=== PATIENT | male | born 1975 | race Caucasian/White ===

== ENCOUNTER 2023-12-28 04:49 | Emergency (ER) | payer OTHER, SELFPAY ==
[2023-12-28 04:49] VITALS: BP 134/88
[2023-12-28 05:22] VITALS: BMI 45.6
--- NOTE | 2023-12-28 05:24 | EDRN ---
Pt says he has L side abdominal pain that woke him around 0300. Pain radiates into groin. Pt denies cp, sob, n/v/d/constipation, urinary symptoms, fever/chills/cough, weakness. Pt felt fine when he went to bed around 0200, took some medication
for acid reflux. Pt says the pain feels 'like someone punched me.'
--- NOTE | 2023-12-28 05:33 | ED.GENMED ---
History of Present Illness
General
Chief Complaint: Abdominal Pain
Source: patient and family
Time Seen by Provider: 12/28/23 05:21
Travel History
Have you had any contact with someone who has COVID-19?: No
Do you have any symptoms of coronavirus? Fever > 100 degrees, chills, cough, shortness of breath, sore throat, loss of taste or smell, muscle aches, or headache?: No
History of Present Illness
History of Present Illness:
This patient is a 48-year-old male presents emergency department with complaints of pain in the left upper quadrant with radiation to the left groin area and urinary urgency. The symptoms all began at 3 AM, abrupt in onset, and constant. He denies
associated nausea, vomiting, diarrhea, fever, chills, constipation, chest pain, dyspnea, dysuria, hematuria, or other complaints.
Past History
Past History
ED Past Medical History: GERD
Social History
Tobacco: Non-smoker
Alcohol: None
Drug: None
Phy Exam
Physical Exam
Physical Exam:
GENERAL: Alert , appears uncomfortable
EYE: pupils equal and reactive
NECK: Supple, no significant adenopathy.
ENT: o/p clr, mmm.
CARDIAC: Regular rate and rhythm .
LUNGS: Clear breath sounds bilaterally, no acute respiratory distress, no wheezes/rales/rhonchi
ABDOMEN: Soft, without focal tenderness, no r/g, no cvat
NEUROLOGICAL: Alert and oriented, no focal neuro deficits
SKIN: Warm and dry, skin intact.
MUSCULOSKELETAL: No edema, well perfused.
PSYCH: Normal and appropriate interaction.
: Janny RAMIREZ present, nontender testicles, no d/c, no swelling
Course
Orders/Labs/Results
Orders:
Orders
12/28/23 04:53
Electrocardiogram (*1) Urgent
Reason for Study: Abdominal Pain
EKG- Treatment ONCE
IV Insert/Care/Rem.- Treatment PRN
12/28/23 05:31
Complete Blood Count/With Diff Urgent
Comprehensive Metabolic Panel Urgent
Lipase Urgent
12/28/23 05:33
CT Abd/pel Without Iv Or Oral Urgent
Comment:
Reason For Exam: l sided pain
0.9% Sodium Chloride 1000 ml [Nss] 1,000 ml IV BOLUS
HYDROmorphone [Dilaudid] 1 mg IV NOW STA
Ketorolac [Toradol] 15 mg IV NOW STA
12/28/23 05:45
Urinalysis Reflex To Culture Urgent
Date Specimen was Collected: 12/28/23
Time Specimen was Collected: 05:39
Urine Microscopic Reflex Cult Urgent
Urine Culture Urgent
ESCOBAR Source: U
Specimen Description:
Date Specimen was Collected: 12/28/23
Time Specimen was Collected: 05:39
Abnormal Lab Results
12/28/23 12/28/23
05:31 05:45
Hgb 10.6 L g/dL
(13.0-18.0)
Hct 34.4 L %
(39.0-52.0)
MCV 68.1 L fL
(80.0-94.0)
MCH 21.0 L pg
(27.0-31.0)
MCHC 30.8 L g/dL
(33.0-37.0)
RDW 17.4 H %
(11.5-14.5)
Absolute Lymphs (auto) 0.8 L 10^3/uL
(1.2-3.4)
Neutrophils % 76.0 H %
(42.2-75.2)
Lymphocytes % 14.3 L %
(20.5-51.1)
Glucose 108 H mg/dl
(70-99)
Ur Occult Blood Reflex 4+ A
(Negative)
Urine RBC 16-20 A /HPF
(0-2)
Urine Bacteria (Reflex) Moderate A
(Negative)
12/28/23 05:31
12/28/23 05:31
Vital Signs
Initial and Last Documented VS:
Initial Vital Signs
Temp Pulse Resp BP Pulse Ox
97.9 F 94 20 134/88 96
12/28/23 04:49 12/28/23 04:49 12/28/23 04:49 12/28/23 04:49 12/28/23 04:49
Last Documented Vital Signs
Temp Pulse Resp BP Pulse Ox
97.9 F 72 18 126/68 95
12/28/23 04:49 12/28/23 08:12 12/28/23 08:12 12/28/23 08:12 12/28/23 08:12
*Critical Care Note
Total Time (30-74mins, 75-104mins- exclusive of procedures): Not Applicable
Update Note
Update Note:
Patient presents to the Emergency Department with abdominal and groin pain
Number and Complexity of Problems Addressed at the Encounter
� Chronic conditions affecting care:
� Acute Exacerbation and/or Progression of Chronic Illness:
� Differential Diagnosis includes: But not limited to pyelonephritis, kidney stone, musculoskeletal discomfort, etc.
Amount and/or Complexity of Data to be Reviewed and Analyzed
� I performed an independent evaluation of and my interpretation is:
EKG:
CT: vision read...2 mm stone within the L base of the bladder min L ureteral distention likely reflects a recently passed stone. no nephrotic or periureteral stranding.
Xrays:
Laboratory Studies:generally unremarkable
Other:
� Review of other/old records reveals:
� Clinical information was obtained by an independent historian: Sister at bedside, can
� Prescriptions/Medications Considered but not given:
� Further testing considered but not performed:
Risk of Complications and/or Morbidity or Mortality of Patient Management
� Social determinants of health affecting care:
� Discussion with other providers (PCP, Hospitalists, Consultants, etc):
� Escalation of care including admission/observation vs risk of discharge considered: pt comfortable, in nad, given strainer and instructions re:reasons to rted.
ED Attending Note
-
Portions of this chart may have been created with voice recognition software.� Occasional wrong word or��sound alike� substitutions may have occurred due to the inherent limitations of voice recognition software.
Discharge Plan
Departure
Patient Disposition: Home (Routine Discharge)
Date of Disposition: 12/28/23
Time of Disposition: 07:20
Patient with high blood pressure during this ER visit?: Yes
Condition: Good
Discharge Problem:
Kidney stone
Instructions: Kidney Stones (DC), How to Strain Your Urine, BLOOD PRESSURE, Narcotic Pain Medication
Prescriptions:
New
tamsulosin [Flomax] 0.4 mg capsule
0.4 mg PO DAILY Qty: 7 0RF
oxycodone-acetaminophen [Percocet] 5-325 mg tablet
1 tab PO Q4HPRN PRN (Reason: pain) Qty: 13 0RF
ondansetron HCl 4 mg tablet
4 mg PO Q8H PRN (Reason: nausea and vomiting) 4 Days Qty: 7 0RF
No Action
atorvastatin 20 MG tablet
20 mg PO DAILY
Lisinopril
1 tab PO HS
Patient Comments:
doesnt know mg
Zoloft
1 tab PO DAILY
Patient Comments:
pt does not know mg
Referrals:
Franc Rob MD [Active] - Follow up in 5-7 days
Meaghan Meza CRNP [Family Provider] -
Activity Restrictions/Additional Instructions:
IF YOU DEVELOP INCREASING/NEW/PERSISTENT PAIN, VOMITING, FEVER, PAIN WITH URINATION, OR OTHER WORRISOME SIGNS, GO TO THE ER IMMEDIATELY!
Interventions
Interventions:
*Risk Screen - Suicide Last Done: 12/28/23 04:49
*General Assessment Last Done: 12/28/23 04:49
*Neglect/Abuse Screening Last Done: 12/28/23 04:49
*ED COVID-19 Vaccine History Last Done: 12/28/23 05:22
*Nursing Disposition Last Done: 12/28/23 08:12
QU-Yzlsir-Yxzukgsbmx Assessment Last Done: 12/28/23 05:47
Discharge Date and Time
Discharge Date/Time: 12/28/23 08:05
[2023-12-28] MEDS: TORADOL 15 MG IV (05:39)
[2023-12-28] MEDS: NSS 1000 IV (05:39)
[2023-12-28 05:42] LABS: % Basophils 0.2 % (0-2); % Eosinophils 2.2 % (0-6); % Immature Granulocytes 0.4 % (0-0.5); % Lymphocytes 14.3 % (20.5-51.1); % Monocytes 6.9 % (1.7-9.3); Absolute Eosinophils 0.1 10^3/uL (0-0.7); Absolute Lymphocytes 0.8 10^3/uL (1.2-3.4); Absolute Monocytes 0.4 10^3/uL (0.1-0.6); Absolute Neutrophils 4.1 10^3/uL (1.4-6.5); Hematocrit 34.4 % (39.0-52.0); Hemoglobin 10.6 g/dL (13.0-18.0); Mean Corp Hgb Conc. 30.8 g/dL (33.0-37.0); Mean Corpuscular Volume 68.1 fL (80.0-94.0); Mean Platelet Volume 10.1 fL (7.4-10.4); Nucleated Red Blood Cells % 0 % (-); Platelet Count 238 10^3/uL (130-400); Red Blood Cell Count 5.05 10^6/uL (4.70-6.10); Red Cell Dist. Width 17.4 % (11.5-14.5); White Blood Cell Count 5.4 10^3/uL (4.8-10.8)
[2023-12-28] MEDS: DILAUDID 1 MG IV (05:42)
[2023-12-28 05:59] LABS: ALT (SGPT) 19 U/L (0-50); AST (SGOT) 19 U/L (17-59); Albumin 3.6 g/dl (3.5-5.0); Alkaline Phosphatase 86 U/L (38-126); Blood Urea Nitrogen 13 mg/dl (9-20); Calcium 8.7 mg/dl (8.4-10.2); Carbon Dioxide 25 mmol/L (22-30); Chloride 105 mmol/L (98-107); Estimated Creatinine Clearance > 125 ml/min; Glucose 108 mg/dl (70-99); Lipase 251 U/L (23-300); Potassium 3.9 mmol/L (3.5-5.1); Sodium 137 mmol/L (135-145); Total Bilirubin 0.5 mg/dl (0.2-1.3); Total Protein 6.5 g/dl (6.3-8.2); eGFR > 60.00
[2023-12-28 06:00] LABS: Urine Albumin Trace (Neg - Trace); Urine Bilirubin Negative (Negative); Urine Character Clear (Clear); Urine Color Yellow; Urine Glucose Negative (Negative); Urine Ketone Negative (Negative); Urine Leukocyte Negative (Negative); Urine Nitrite Negative (Negative); Urine Occult Blood 4+ (Negative); Urine Urobilinogen Negative (Neg - 1+)
[2023-12-28 06:09] VITALS: BP 129/74
[2023-12-28 06:09] LABS: Urine Bacteria Moderate (Negative)
[2023-12-28 06:10] LABS: Urine Red Blood Cell 16-20 /HPF (0-2)
--- NOTE | 2023-12-28 08:06 | EDRN ---
Reviewed discharge instructions with patient. Verbalized understanding. Ambulated with steady gait to the lobby.
[2023-12-28 08:12] VITALS: BP 126/68
== END 2023-12-28 08:05 | disposition home or self-care (01) ==
LOC: EMR 04:49
PROVIDERS: EMERGENCY PHYSICIAN Emergency Medicine; FAMILY PHYSICIAN Nurse Practitioner
DX: R10.32 Left lower quadrant pain (principal); K21.9 Gastro-esophageal reflux disease without esophagitis; N20.0 Calculus of kidney
CPT/HCPCS: 99284; 96374; 96375; 96361; 74176; 80053; 81003; 81015; 83690; 85025; 87077; 87086; 87147; 93005

== ENCOUNTER → 2025-10-17 08:14 | Outpatient (REF) | payer OTHER, SELFPAY | LOC: DHSLP 08:14 | PROVIDERS: ATTENDING PHYSICIAN Internal Medicine | DX: G47.33 Obstructive sleep apnea (adult) (pediatric) (principal); R09.02 Hypoxemia | CPT/HCPCS: 95800 ==